=== PATIENT | female | born 1995 | race Two or more races ===

== ENCOUNTER 2025-04-18 13:54 | Emergency (ER) | payer BC, OTHER ==
[~2025-04-18] VITALS: Ht 152.4 cm; Wt 45.4 kg
[2025-04-18 14:18] VITALS: BP 103/60; TEMP 98; O2SAT 99
== END 2025-04-18 15:06 | disposition home or self-care (01) ==
LOC: EDBD 14:10 → ER 14:10
DX: T18.128A Food in esophagus causing other injury, initial encounter (principal); R11.10 Vomiting, unspecified; W44.F3XA Food entering into or through a natural orifice, initial encounter; Y93.89 Activity, other specified; Y92.89 Other specified places as the place of occurrence of the external cause; Y99.8 Other external cause status